=== PATIENT | female | born 1950 | race Caucasian/White ===

== ENCOUNTER 2017-01-08 17:39 | Emergency (ER) | payer BC ==
[~2017-01-08] VITALS: Ht 160 cm; Wt 84.5 kg
[~2017-01-08 17:39] MED LIST: ADAL40KI SC; ASPEC325 PO; BUTA1CAP17 PO; CITA20TA9 PO; CLB200 PO; CYCL10TA6 PO; FRRG PO; GLC500 PO; GLIM4TAB2 PO; INSDGI SC; LISI-526 PO; LORA-741 PO; LPT/40 PO; OMEP20CA59 PO; OXYSR/10 PO; RXC5 PO; SSDCR50 EXT; TRAZ50TA35 PO
[2017-01-08 17:42] VITALS: TEMP 36.8; Ht 160 cm; Wt 84.5 kg
[2017-01-08] MEDS ORDERED: PROPARACAINE HCL 0.5% OP SOLN 15 ML BTL OP STA (17:48)
[2017-01-08] MEDS ORDERED: PROPARACAINE HCL 0.5% OP SOLN 15 ML BTL ONE (17:56)
[2017-01-08] MEDS ORDERED: FERR325T18 PO (18:23)
[2017-01-08] MEDS ORDERED: CANA1TAB PO (18:23)
[2017-01-08] MEDS ORDERED: RXC/5 PO (18:23)
[2017-01-08] MEDS ORDERED: GLC500 PO (18:23)
[2017-01-08] MEDS ORDERED: INSDGI SC (18:23)
[2017-01-08] MEDS ORDERED: CIPROFLOXACIN HCL 0.3% OP SOLN 2.5 ML BTL OP STA (18:26)
[2017-01-08 18:40] VITALS: BP 133/90; PULSE 75; O2SAT 94
--- NOTE | 2017-01-08 18:51 | EMERGENCY ROOM VISIT NOTE ---
History First contact with patient: 17:47 Chief Complaint: EYE ASSESSMENT Stated Complaint: R EYE CORNEA ERUPTION History of Present Illness The patient is a 66 year old female who presents to the Emergency Room with complaints of discomfort and resolving light sensitivity in the right eye. The patient reports that she rubbed her eye an hour ago and has had persistent discomfort since that time. The patient reports that she had a corneal eruption 3 months ago, and had surgery performed at the [facility]. She is currently under the care of Dr. Klaus blankenship. She denies any problems since her surgery. Tetanus immunization is up-to-date. The patient rates her discomfort a 9 out of 10. Review of Systems 10 system review was performed and was negative except for pertinent positives and negatives as indicated in history of present illness Past Medical/Surgical History Medical Problems: (1) Diabetes mellitus, type II (2) Hypertension Surgical Problems: (1) Status post hysterectomy Family History Unremarkable Social History Smoking Status: Former Smoker Drug Use: none Marital Status: Housing Status: lives with family Current/Historical Medications Scheduled Adalimumab (Humira Pen), 1 DOSE SC every other week Atorvastatin (Lipitor), 40 MG PO HS Canagliflozin (Invokana), 100 MG PO DAILYBB Citalopram Hydrobromide (Celexa), 20 MG PO QAM Ferrous Gluconate (Ferrous Gluconate), 324 MG PO QDB Glimepiride (Glimepiride), 1 TAB PO QAM Insulin Glargine (Lantus), 40 UNITS SC HS Lisinopril (Prinivil), 30 MG PO QAM Metformin HCl (Metformin HCl), 500 MG PO BID Omeprazole (Prilosec), 20 MG PO BID Scheduled PRN Gwscgrucee-Yztxifrbkpzjv-Ocplv (Fioricet), 1-2 TAB PO DAILY PRN for Migraine Cyclobenzaprine Hcl (Flexeril), 10 MG PO BID PRN for prn Lorazepam (Ativan), 0.5 MG PO Q8H PRN for PRN Oxycodone HCl (Oxycodone HCl), 5-10 MG PO Q4H PRN for Pain Trazodone Hcl (Trazodone), 50 MG PO HS PRN for Sleep Allergies Coded Allergies: No Known Allergies (Unverified , 01/08/17) Physical Exam Vital Signs Date Time Temp Pulse Resp B/P Pulse Ox O2 Delivery O2 Flow Rate FiO2 01/08/17 18:40 75 18 133/90 94 01/08/17 17:42 36.8 92 20 168/100 99 Room Air Right Eye Acuity: 20/200 Left Eye Acuity: 20/25 Pain Rating (0-10): 0 Physical Exam CONSTITUTIONAL: Healthy and well nourished. Alert and oriented X 3 with positive affect. Patient does not appear in any acute distress. HEENT: Normocephalic, atraumatic. Pupils equal, round and reactive. Examination shows minimal right inferior conjunctival injection without subconjunctival hemorrhage. Patient is photophobic. No excessive tearing or mucopurulent drainage from the eye. EOMs intact without discomfort. OROPHARYNX: No posterior pharyngeal erythema. NECK: Full active range of motion without discomfort. RESPIRATORY: Clear to auscultation bilaterally with no wheezing, crackles, rhonchi or stridor. INTEGUMENTARY: No rash or other significant dermatologic conditions noted. NEUROLOGIC: No focal neurologic deficits noted. Medical Decision & Procedures Medications Administered Medications (Trade) Dose Ordered Sig/Danuta Route Start Time Stop Time Status Last Admin Dose Admin Proparacaine HCl (Alcaine 0.5% Oph Soln) 2 drops NOW STAT OP 01/08/17 17:48 01/08/17 17:50 DC 01/08/17 17:48 2 DROPS Ciprofloxacin HCl (Ciprofloxacin 0.3% Op Soln) 2 drops NOW STAT OP 01/08/17 18:26 01/08/17 18:27 DC 01/08/17 18:26 2 DROPS Procedure Slit lamp and fluorescein exam were performed. 2 drops of Alcaine were instilled into the eye. This completely resolved the patient's discomfort. Slit lamp exam shows an inferior corneal abrasion. Negative hyphema. Negative cell and flare. Fluorescein exam confirms an inferior abrasion. Negative Mundo test. ED Course Patient history and physical exam were performed. Nurse's notes were reviewed. Slit lamp and fluorescein exam confirms an inferior corneal abrasion. The patient was dispensed Ciloxan 0.3% solution and instructions for its use. She was encouraged to intermittently apply ice to the eye. Ibuprofen or Tylenol as needed for pain. She was instructed to follow-up closely with Dr. Enrique, returning to the emergency department over the weekend for any further concerns. The patient was happy with plan of care, voiced understanding of all discharge instructions, and denied any pain at the conclusion of my exam. The patient was also seen and examined by Dr. Fry, ED attending physician, who agrees with workup and plan of care. Impression Primary Impression: Right corneal abrasion Departure Information Dispostion Home / Self-Care Forms HOME CARE DOCUMENTATION FORM, IMPORTANT VISIT INFORMATION Patient Instructions My [facility]Works Additional Instructions 2 Cipro Floxin antibiotic eyedrops every 4-6 hrs (while awake) for 7 days. Ibuprofen or Tylenol as needed for pain. You may also intermittently apply a cool compress and wear sunglasses for additional relief. Follow-up with your television engineering teacher if no improvement within 2-3 days. Return to the emergency department over the weekend for any progressively worsening symptoms or other concerns. Problem Qualifiers Primary Impression: Right corneal abrasion Encounter type: initial encounter Qualified Codes: S05.01XA - Injury of conjunctiva and corneal abrasion without foreign body, right eye, initial encounter
== END 2017-01-08 18:42 | disposition home or self-care (01) ==
LOC: C.EDB 17:39 → C.EDD 18:42
DX: S05.01XA Injury of conjunctiva and corneal abrasion without foreign body, right eye, initial encounter (principal); X58.XXXA Exposure to other specified factors, initial encounter; E11.9 Type 2 diabetes mellitus without complications; I10 Essential (primary) hypertension; Z90.710 Acquired absence of both cervix and uterus; Z79.4 Long term (current) use of insulin; Z79.84 Long term (current) use of oral hypoglycemic drugs; Z79.899 Other long term (current) drug therapy; Z87.891 Personal history of nicotine dependence

== ENCOUNTER 2017-05-15 15:00 | Emergency (ER) | payer BC ==
[~2017-05-15] VITALS: Ht 157.5 cm; Wt 84.6 kg
[~2017-05-15 15:00] MED LIST changes: -ASPEC325 PO; +CANA1TAB PO; -CLB200 PO; +FERR325T18 PO; -FRRG PO; -OXYSR/10 PO; +RXC/5 PO; -RXC5 PO; -SSDCR50 EXT
[2017-05-15 15:15] VITALS: TEMP 36.7; Ht 157.5 cm; Wt 84.6 kg
[2017-05-15] MEDS ORDERED: OPTIRAY 320 IV PRN (15:45)
[2017-05-15] MEDS ORDERED: HYDR-5688 PO (16:22)
[2017-05-15 16:23] LABS: BASO % 0.3 %; BASO ABS # 0.03 K/uL (0-0.2); COMPLETE YES; EOS % 2.7 %; HEMATOCRIT 46.4 % (37-47); IG% 0.2 %; LYMPH % 36.2 %; LYMPH ABS # 3.24 K/uL (1.2-3.4); MEAN CELL VOLUME 90.1 fL (80-100); MEAN CORPUSCULAR HEMOGLOBIN 31.7 pg (25-34); MEAN CORPUSCULAR HGB CONC 35.1 g/dl (32-36); MEAN PLATELET VOLUME 9.5 fL (7.4-10.4); MONO % 8.9 %; NEUT % 51.7 %; PLATELET COUNT 187 K/uL (130-400); RED BLOOD COUNT 5.15 M/uL (4.2-5.4); WHITE BLOOD COUNT 8.96 K/uL (4.8-10.8)
[2017-05-15] MEDS ORDERED: KETOROLAC TROMETHAMINE 30 MG/ML VIAL IV STA (16:23)
[2017-05-15 16:50] LABS: BUN/CREATININE RATIO 15.7 (10-20); CALCIUM 9.5 mg/dl (8.5-10.1); CREATININE 0.92 mg/dl (0.60-1.20); POTASSIUM 4.2 mmol/L (3.5-5.1)
--- NOTE | 2017-05-15 17:44 | DIAGNOSTIC IMAGING REPORT ---
SOFT TISSUE NECK WITH CLINICAL HISTORY: Jaw and neck pain. Evaluate for abscess. COMPARISON STUDY: Neck CT December 22, 2011. TECHNIQUE: Axial images of the neck were obtained following intravenous injection of 94 cc of Optiray 320 IV. FINDINGS: Moderate emphysema is noted within visualized portions of the lungs. No cervical lymphadenopathy is identified. There is no cervical mass. A 7 mm left parotid gland nodule has only minimally increased in size since exam of December 22, 2011. This likely reflects an intraparotid lymph node. Visualized portions of the intracranial contents are unremarkable on this examination. Major vasculature of the neck is patent. The epiglottis is normal. No mucosal lesion is identified although these may be occult by CT. No suspicious osseous lesion is identified. There several absent teeth. Several periapical lucencies and multiple dental cavities are noted. There is no infiltration adjacent to the parotid or submandibular glands to suggest sialoadenitis. IMPRESSION: 1. No cervical lymphadenopathy, mass or abscess identified. 2. Several periapical lucencies and multiple dental cavities. No associated soft tissue abscess or significant infiltration to suggest cellulitis. 3. Moderate emphysema. Electronically signed by: Clemente Chu M.D. 05/15/2017 5:43 PM Dictated Date/Time: 05/15/2017 5:33 PM
--- NOTE | 2017-05-15 18:00 | EMERGENCY ROOM VISIT NOTE ---
History Report prepared by Jewell: Carmen Hernandez Under the Supervision of: Dr. Byron Mitchell M.D. First contact with patient: 15:26 Chief Complaint: FACIAL PAIN/INJURY Stated Complaint: JAW PAIN History of Present Illness The patient is a 66 year old female who presents to the Emergency Room with complaints of persistent jaw pain starting 2 months ago. She describes the pain as throbbing. She has followed with her PCP, ENT, and dentist for this pain. She received 2 rounds of antibiotics from her PCP for a suspected sinus infection which did not help. She was then referred to ENT who just cleared out her earwax which did not bring her any relief. She then went to her dentist who thought that she has TMJ after and X-ray of her jaw. She has not had any other imaging. She went to [place] therapy which did help for a while, but the pain came back 2 days ago. She has been unable to sleep the past 2 nights because of her pain. She denies any injury to her jaw. She has tried taking Vicodin which she has at home for spinal stenosis to no significant relief. She has also tried Aleve and cyclobenzaprine to no relief. She last took Aleve at 0900. She notes some swelling to the left side of her jaw. She denies any ear pain, sore throat, fever, vomiting, chest pain, SOB, abdominal pain, or diarrhea. She has a history of psoriatic arthritis, psoriasis, and hypertension. Source of History: patient Onset: 2 months ago Position: jaw Quality: other (throbbing) Timing: other (persistent) Modifying Factors (Relieving): other (none) Associated Symptoms: No fevers, No sorethroat, No chest pain, No SOB, No vomiting, No abdominal pain, No diarrhea Note: Pt denies ear pain. Review of Systems See HPI for pertinent positives & negatives. A total of 10 systems reviewed and were otherwise negative. Past Medical & Surgical Medical Problems: (1) Cholelithiasis Nos (2) Diabetes mellitus, type II (3) Esophageal reflux (4) History Of Tobacco Use (5) Hyperlipidemia Nec/Nos (6) Hypertension (7) Hypertension Nos (8) Major Depressive Disorder, Single Episode, Unspecified (9) Psoriatic arthritis (10) Sialoadenitis Surgical Problems: (1) History of eye surgery (2) History of hysterectomy (3) Status post hysterectomy Family History Diabetes mellitus Hypertension Social History Smoking Status: Former Smoker Drug Use: none Marital Status: Housing Status: lives with family Current/Historical Medications Scheduled Atorvastatin (Lipitor), 40 MG PO HS Canagliflozin (Invokana), 100 MG PO DAILYBB Citalopram Hydrobromide (Celexa), 20 MG PO QAM Ferrous Gluconate (Ferrous Gluconate), 324 MG PO QDB Glimepiride (Glimepiride), 1 TAB PO QAM Hydrocodone/Acetaminophen 5MG/325MG ([place] 5MG/325MG), 1 TAB PO BID Insulin Glargine (Lantus), 40 UNITS SC HS Lisinopril (Prinivil), 30 MG PO QAM Metformin HCl (Metformin HCl), 500 MG PO BID Omeprazole (Prilosec), 20 MG PO BID Scheduled PRN Sdssgjspzg-Nslfbohekysng-Elpko (Fioricet), 1-2 TAB PO DAILY PRN for Migraine Cyclobenzaprine Hcl (Flexeril), 10 MG PO BID PRN for prn Lorazepam (Ativan), 0.5 MG PO Q8H PRN for PRN Trazodone Hcl (Trazodone), 50 MG PO HS PRN for Sleep Allergies Coded Allergies: No Known Allergies (Unverified , 05/15/17) Physical Exam Vital Signs Date Time Temp Pulse Resp B/P (MAP) Pulse Ox O2 Delivery O2 Flow Rate FiO2 05/15/17 16:28 82 15 153/87 97 Room Air 05/15/17 15:15 36.7 92 18 136/80 96 Room Air Physical Exam Constitutional: Vital signs reviewed. Eyes: Pupils are equal round reactive to light. Conjunctiva are noninjected. ENT: Pharynx is clear without erythema or exudate. Mucous membranes are moist. Neck supple without meningeal signs. Bilateral TMJ tenderness without swelling or erythema. Mild left sided submandibular tenderness. No mastoid tenderness. TMs are clear bilaterally. No facial swelling, erythema, or increased warmth. Respiratory: Clear to auscultation bilaterally. Breath sounds are equal bilaterally. Cardiovascular: Regular rate and rhythm. No rubs or gallops. GI: Soft, nondistended and nontender. Bowel sounds are present. Musculoskeletal: No peripheral edema. No lower extremity tenderness. Integumentary: No cyanosis. Neurological: The patient is awake and alert. No focal deficits. Psychiatric: Normal affect. Medical Decision & Procedures ER Provider Diagnostic Interpretation: Radiology results as stated below per my review and the radiologist's interpretation: SOFT TISSUE NECK WITH CLINICAL HISTORY: Jaw and neck pain. Evaluate for abscess. COMPARISON STUDY: Neck CT December 22, 2011. TECHNIQUE: Axial images of the neck were obtained following intravenous injection of 94 cc of Optiray 320 IV. FINDINGS: Moderate emphysema is noted within visualized portions of the lungs. No cervical lymphadenopathy is identified. There is no cervical mass. A 7 mm left parotid gland nodule has only minimally increased in size since exam of December 22, 2011. This likely reflects an intraparotid lymph node. Visualized portions of the intracranial contents are unremarkable on this examination. Major vasculature of the neck is patent. The epiglottis is normal. No mucosal lesion is identified although these may be occult by CT. No suspicious osseous lesion is identified. There several absent teeth. Several periapical lucencies and multiple dental cavities are noted. There is no infiltration adjacent to the parotid or submandibular glands to suggest sialoadenitis. IMPRESSION: 1. No cervical lymphadenopathy, mass or abscess identified. 2. Several periapical lucencies and multiple dental cavities. No associated soft tissue abscess or significant infiltration to suggest cellulitis. 3. Moderate emphysema. Electronically signed by: Clemente Chu M.D. 05/15/2017 5:43 PM Dictated Date/Time: 05/15/2017 5:33 PM Laboratory Results 05/15/17 16:10 Red Blood Count 5.15, Mean Corpuscular Volume 90.1, Mean Corpuscular Hemoglobin 31.7, Mean Corpuscular Hemoglobin Concent 35.1, Mean Platelet Volume 9.5, Neutrophils (%) (Auto) 51.7, Lymphocytes (%) (Auto) 36.2, Monocytes (%) (Auto) 8.9, Eosinophils (%) (Auto) 2.7, Basophils (%) (Auto) 0.3, Neutrophils # (Auto) 4.63, Lymphocytes # (Auto) 3.24, Monocytes # (Auto) 0.80, Eosinophils # (Auto) 0.24, Basophils # (Auto) 0.03 05/15/17 16:10 Test 05/15/17 16:10 White Blood Count 8.96 K/uL (4.8-10.8) Red Blood Count 5.15 M/uL (4.2-5.4) Hemoglobin 16.3 g/dL (12.0-16.0) Hematocrit 46.4 % (37-47) Mean Corpuscular Volume 90.1 fL (80-100) Mean Corpuscular Hemoglobin 31.7 pg (25-34) Mean Corpuscular Hemoglobin Concent 35.1 g/dl (32-36) Platelet Count 187 K/uL (130-400) Mean Platelet Volume 9.5 fL (7.4-10.4) Neutrophils (%) (Auto) 51.7 % Lymphocytes (%) (Auto) 36.2 % Monocytes (%) (Auto) 8.9 % Eosinophils (%) (Auto) 2.7 % Basophils (%) (Auto) 0.3 % Neutrophils # (Auto) 4.63 K/uL (1.4-6.5) Lymphocytes # (Auto) 3.24 K/uL (1.2-3.4) Monocytes # (Auto) 0.80 K/uL (0.11-0.59) Eosinophils # (Auto) 0.24 K/uL (0-0.5) Basophils # (Auto) 0.03 K/uL (0-0.2) RDW Standard Deviation 43.6 fL (36.4-46.3) RDW Coefficient of Variation 13.2 % (11.5-14.5) Immature Granulocyte % (Auto) 0.2 % Immature Granulocyte # (Auto) 0.02 K/uL (0.00-0.02) Anion Gap 6.0 mmol/L (3-11) Est Creatinine Clear Calc Drug Dose 61.5 ml/min Estimated GFR () 75.7 Estimated GFR (Non- 65.3 BUN/Creatinine Ratio 15.7 (10-20) Calcium Level 9.5 mg/dl (8.5-10.1) Chemistry Specimen Hemolysis Laboratory results as reviewed by me. Medications Administered Medications (Trade) Dose Ordered Sig/Danuta Route Start Time Stop Time Status Last Admin Dose Admin Ketorolac Tromethamine (Toradol Inj) 10 mg NOW STAT IV 05/15/17 16:23 05/15/17 16:24 DC 05/15/17 16:29 10 MG ED Course 1527: The patient was evaluated in room C2B. A complete history and physical exam was performed. 1623: Toradol Inj 10 mg IV. 1733: I reevaluated the patient. She says she feels better. I discussed the results of the blood tests with her. We are awaiting the CT results. 175: Upon reevaluation, the patient appeared to have improvement of her symptoms. She was given a copy of the CT results to take to her dentist and doctor. I discussed tonight's findings with her. She verbalized agreement of the treatment plan. She was discharged home. Medical Decision This is a 66-year-old female who presents with facial pain. Differential diagnosis includes TMJ syndrome, sialoadenitis, neuralgia, mass, infection. I did perform a limited focused review of portions of the patient's old chart on the electronic medical record. The patient has had no recent pertinent visits to this hospital. I did evaluate the patient as noted above. The patient is presenting with a 2 month history of facial pain. She points to her bilateral TMJ as well as her submandibular area. She has tenderness in these areas without signs of infection. She has been evaluated by ENT, her dentist and her doctor. She has been on 2 courses of antibiotics. She presents because she was unable to sleep last night. IV access was established. I did order and review the patient's blood work as noted in the electronic medical record. Her white blood cell count was not elevated. After discussion with the patient, I did order a CT of the soft tissue neck. I did evaluate the images myself as well as the radiology report as described above. There is no evidence of acute process. There is some evidence of periapical lucencies without abscesses and dental caries. I did discuss the test results with the patient and her . She does state that she has pain throughout her maxillary region which is chronic due to sinus issues. She has been on 2 courses of antibiotics including Augmentin which did not seem to help. At this time I did not feel antibiotics would likely help her as the radiologist did not feel that the CT was generally ideal for assessing dental issues. The patient does have an appointment to see her dentist and will discuss the CT report with him. The patient was discharged in good condition. She was given IV Toradol here and felt better afterwards. She was given return instructions as outlined below. Medication Reconcilliation Current Medication List: was personally reviewed by me Blood Pressure Screening Patient's blood pressure: Elevated blood pressure Blood pressure disposition: Elevated BP felt to be situational Impression Primary Impression: Facial pain Scribe Attestation The scribe's documentation has been prepared under my direct and personally reviewed by me in its entirety. I confirm that the note above accurately reflects all work, treatment, procedures, and medical decision making performed by me. Departure Information Dispostion Home / Self-Care Referrals Gavino Bernal D.O. (PCP) Patient Instructions My [facility] Additional Instructions You have been examined and treated today on an emergency basis only. This is not a substitute for, or an effort to provide, complete comprehensive medical care. It is impossible to recognize and treat all injuries or illnesses in a single emergency department visit. It is therefore important that you follow up closely with your physician and dentist. Call as soon as possible for an appointment. Return for worsening symptoms or if you develop fever, vomiting, redness or swelling to her face or any other concerning symptoms.
[2017-05-15 18:10] VITALS: BP 111/77; PULSE 78; O2SAT 94
== END 2017-05-15 18:10 | disposition home or self-care (01) ==
LOC: C.EDB 15:01 → C.EDC 18:10
DX: R51 Headache (principal); E78.5 Hyperlipidemia, unspecified; I10 Essential (primary) hypertension; E11.9 Type 2 diabetes mellitus without complications; F32.9 Major depressive disorder, single episode, unspecified; K21.9 Gastro-esophageal reflux disease without esophagitis; Z90.710 Acquired absence of both cervix and uterus; Z87.891 Personal history of nicotine dependence; Z79.4 Long term (current) use of insulin; Z79.84 Long term (current) use of oral hypoglycemic drugs; Z79.899 Other long term (current) drug therapy; Z83.3 Family history of diabetes mellitus; Z82.49 Family history of ischemic heart disease and other diseases of the circulatory system